=== PATIENT | female | born 1985 | race Caucasian/White ===

== ENCOUNTER 2021-03-11 17:48 | Emergency (ER) | payer OTHER, SELFPAY ==
[2021-03-11] MEDS ORDERED: Acetaminophen 500 MG TAB ONE (20:02)
== END 2021-03-11 20:55 | disposition home or self-care (01) ==
LOC: CSHERS 17:48
DX: S16.1XXA Strain of muscle, fascia and tendon at neck level, initial encounter (principal); M54.50 Low back pain, unspecified; F17.290 Nicotine dependence, other tobacco product, uncomplicated; Z79.899 Other long term (current) drug therapy; V49.40XA Driver injured in collision with unspecified motor vehicles in traffic accident, initial encounter
CPT/HCPCS: 72050; 72100